=== PATIENT | female | born 1970 | race Caucasian/White ===

== ENCOUNTER 2017-02-11 15:58 | Emergency (ER) | payer OTHER ==
[~2017-02-11] VITALS: Ht 162.6 cm; Wt 62.0 kg
[2017-02-11 16:14] VITALS: BP 115/78
== END 2017-02-11 16:43 | disposition home or self-care (01) ==
LOC: EMS 16:00
DX: S52.592A Other fractures of lower end of left radius, initial encounter for closed fracture (principal); S52.692A Other fracture of lower end of left ulna, initial encounter for closed fracture; F17.210 Nicotine dependence, cigarettes, uncomplicated; F19.90 Other psychoactive substance use, unspecified, uncomplicated; V49.9XXA Car occupant (driver) (passenger) injured in unspecified traffic accident, initial encounter; Y93.89 Activity, other specified; Y92.89 Other specified places as the place of occurrence of the external cause; Y99.8 Other external cause status
CPT/HCPCS: 99284

== ENCOUNTER 2020-11-18 16:19 | Inpatient (IN) | payer OTHER ==
[~2020-11-18] VITALS: Ht 162.6 cm; Wt 64.9 kg
[2020-11-18] MEDS ORDERED: SODIUM CHLORIDE 0.9% 1,000 ML IV ONE (16:45)
[2020-11-18 17:25] LABS: COVID AG,FIA SOURCE NASOPHARYNGEAL
[2020-11-18 18:14] LABS: BASOPHILS % (AUTO) 0.6 % (0.0-2.0); EOSINOPHILS % (AUTO) 0.8 % (1.0-6.0); HEMATOCRIT 41.9 % (36-46); HEMOGLOBIN 13.3 g/dL (12.0-16.0); LYMPHOCYTES # (AUTO) 1.6 K/uL (1.0-4.8); LYMPHOCYTES % (AUTO) 19.3 % (22.0-44.0); MEAN CORPUSCULAR HEMOGLOBIN 25.6 pg (26.0-34.0); MEAN CORPUSCULAR HGB CONC 31.7 G/dL (31.0-37.0); MEAN CORPUSCULAR VOLUME 81 fL (80-100); MONOCYTES # (AUTO) 0.4 K/uL (0.1-1.0); MONOCYTES % (AUTO) 4.8 % (2.0-9.0); NEUTROPHILS # (AUTO) 6.2 K/uL (1.8-7.7); NEUTROPHILS % (AUTO) 74.5 % (40.0-70.0); RED BLOOD CELL COUNT(AUTO) 5.18 MIL/uL (4.00-5.20); RED CELL DISTRIBUTION WIDTH 13.7 % (11.5-14.5)
[2020-11-18 18:18] LABS: ANION GAP 8 mmol/L (8-16); CALCIUM, TOTAL 8.9 mg/dL (8.8-10.5); CARBON DIOXIDE 25 mmol/L (22-29); CHLORIDE 104 mmol/L (98-107); GLOMERULAR FILTR. RATE CALC > 60 mL/min (>60); GLUCOSE,RANDOM 100 mg/dL (70-110); POTASSIUM 4.5 mmol/L (3.5-5.1); SODIUM SERUM 137 mmol/L (136-145); UREA NITROGEN, BLOOD 15 mg/dL (7-18)
[2020-11-18 18:32] LABS: ALANINE AMINOTRANSFERASE 24 U/L (12-78); ALBUMIN 3.5 g/dL (3.4-5.0); ALKALINE PHOSPHATASE 95 U/L (46-116); ASPARTATE AMINOTRANSFERASE 27 U/L (15-37); BILIRUBIN,TOTAL 0.4 mg/dL (0.1-1.0); HCG,QUANTITATIVE < 1 mIU/mL (0-6); TOTAL PROTEIN, SERUM 7.6 g/dL (6.4-8.2)
[2020-11-18] MEDS ORDERED: 0.9% SODIUM CHLORIDE 10 ML SYRINGE IVP PRN (18:45)
[2020-11-18] MEDS ORDERED: ONDANSETRON HCL 4 MG/2 ML VIAL IVP PRN (18:45)
[2020-11-18 18:52] LABS: PLATELET COUNT (AUTO) 208 K/uL (150-450)
[2020-11-18] MEDS: LORazepam 2 MG TABLET PO PRN (20:32)
[2020-11-18 20:53] VITALS: BP 126/92
[2020-11-19] MEDS: LORazepam 2 MG TABLET PO PRN ×3 (00:31→23:43)
[2020-11-19] MEDS: ACETAMINOPHEN 325 MG TABLET PO PRN (04:02)
[2020-11-19 04:04] VITALS: BP 134/82
[2020-11-19 08:10] VITALS: BP 135/76
[2020-11-19] MEDS: LORazepam 2 MG TABLET PO SCH ×5 (09:00→21:22)
[2020-11-19] MEDS: ENOXAPARIN SODIUM 40 MG/0.4 ML PF SYRINGE SQ SCH ×2 (09:56→15:51)
[2020-11-19 11:31] VITALS: BP 129/71
[2020-11-19 15:18] VITALS: BP 128/59
[2020-11-19 19:50] VITALS: BP 132/74
[2020-11-20 00:23] LABS: AMPHET/METH SCREEN,URINE POSITIVE (NEGATIVE); BARBITURATE SCREEN, URINE NEGATIVE (NEGATIVE); BENZODIAZEPINES SCREEN,URINE NEGATIVE (NEGATIVE); CANNABINOID SCREEN,URINE NEGATIVE (NEGATIVE); COCAINE SCREEN,URINE NEGATIVE (NEGATIVE); METHADONE SCREEN, URINE NEGATIVE (NEGATIVE); OPIATE SCREEN,URINE POSITIVE (NEGATIVE)
[2020-11-20 00:26] LABS: PHENCYCLIDINE SCREEN,URINE NEGATIVE (NEGATIVE)
[2020-11-20 00:50] VITALS: BP 124/81
[2020-11-20] MEDS: LORazepam 2 MG TABLET PO PRN (03:10)
[2020-11-20 04:25] VITALS: BP 104/60
[2020-11-20 08:18] VITALS: BP 112/81
[2020-11-20] MEDS: LORazepam 2 MG TABLET PO SCH (09:05)
[2020-11-20] MEDS: ENOXAPARIN SODIUM 40 MG/0.4 ML PF SYRINGE SQ SCH (09:06)
[2020-11-20] MEDS ORDERED: LORazepam 2 MG/ML VIAL IVP PRN (11:00)
[2020-11-20 11:23] VITALS: BP 107/76
[2020-11-20 15:55] VITALS: BP 101/75
[2020-11-20 20:41] VITALS: BP 107/72
[2020-11-21] VITALS (7 sets, daily range): BP systolic 100–113; BP diastolic 62–78
[2020-11-21] MEDS: LORazepam 2 MG TABLET PO PRN ×3 (01:39→22:09)
[2020-11-21] MEDS ORDERED: ONDANSETRON HCL 4 MG/2 ML VIAL IVP PRN (02:00)
[2020-11-21] MEDS ORDERED: LORazepam 1 MG TABLET PO PRN (07:00)
[2020-11-21] MEDS ORDERED: LORazepam 1 MG TABLET PO SCH (09:00)
[2020-11-22 04:20] VITALS: BP 115/76
[2020-11-22] MEDS ORDERED: LORazepam 1 MG TABLET PO PRN (07:00)
[2020-11-22 08:20] VITALS: BP 102/71
[2020-11-22 12:05] VITALS: BP 102/59
[2020-11-22 16:10] VITALS: BP 96/58
[2020-11-22] MEDS: ACETAMINOPHEN 325 MG TABLET PO PRN (16:10)
[2020-11-22] MEDS ORDERED: LORazepam 1 MG TABLET PO ONE (18:30)
[2020-11-22 19:25] VITALS: BP 97/51
[2020-11-22 23:20] VITALS: BP 107/78
[2020-11-23] MEDS ORDERED: LORazepam 1 MG TABLET PO ONE (01:00)
[2020-11-23 03:30] VITALS: BP 96/76
[2020-11-23 07:23] VITALS: BP 119/54
[2020-11-23] MEDS ORDERED: PARoxetine HCL 10 MG TABLET PO SCH (09:00)
[2020-11-23] MEDS ORDERED: PARO10TA89 PO (10:30)
[2020-11-23] MEDS ORDERED: ACET-2247 PO (10:31)
[2020-11-23 15:12] VITALS: BP 109/56
== END 2020-11-23 15:30 | DRG 897 ==
LOC: EDBD 16:19 → EMS 16:19 → 6S 18:30
PROVIDERS: ADMIT Internal Medicine; ATTEND Internal Medicine
DX: F15.23 Other stimulant dependence with withdrawal (principal); F41.1 Generalized anxiety disorder; Z20.822 Contact with and (suspected) exposure to COVID-19; Z91.14 Patient's other noncompliance with medication regimen; F19.10 Other psychoactive substance abuse, uncomplicated
CPT/HCPCS: 87426; 93005; 99285; G0480; J1650; J2405